=== PATIENT | male | born 1985 | race Caucasian/White ===

== ENCOUNTER 2022-05-04 12:12 | Outpatient (CLI) | payer OTHER, SELFPAY ==
--- NOTE | 2022-05-04 12:00 | USCV_ITS ---
Gabriel Oren Age: 36 Gender: M : 1985 Exam Date: 05/04/2022 12:32 Ordering Phys: Alexandro Guerra M.D ([email or web address]) Technologist: [place] [facility] [place]: chest pain BP: 120 / 70 HR: 57 Rhythm: Sinus Technical Quality: Adequate MEASUREMENTS (Male / Female) Normal Values 2D ECHO LV Diastolic Diameter PLAX 3.9 cm 4.2 - 5.9 / 3.9 - 5.3 cm LV Systolic Diameter PLAX 3.1 cm IVS Diastolic Thickness 1.3 cm 0.6 - 1.0 / 0.6 - 0.9 cm IVS Systolic Thickness 1.5 cm LVPW Diastolic Thickness 1.2 cm 0.6 - 1.0 / 0.6 - 0.9 cm LVPW Systolic Thickness 1.6 cm LVOT Diameter 2.0 cm LV Ejection Fraction 2D Teich 40.8 % LA Diameter 3.2 cm IVC Diameter 1.4 cm M-MODE Aortic Annulus Diameter 3.5 cm LA Ao Ratio MM 0.9 MV E Point Septal Separation 0.9 cm DOPPLER AV Peak Velocity 100.0 cm/s LVOT Peak Velocity 87.0 cm/s AV Area Cont Eq vti 2.3 cm squared AV Area Cont Eq pk 2.7 cm squared MV Area PHT 3.1 cm squared Mitral E to A Ratio 1.7 MV E' Velocity 48.0 cm/s Mitral E to MV E' Ratio 6.6 Mitral E to LV E' Lateral Ratio 6.4 Mitral E to LV E' Septal Ratio 6.8 TR Peak Velocity 165.0 cm/s TR Peak Gradient 10.9 mmHg TV Peak E Velocity 97.0 cm/s Right Atrial Pressure 3.0 mmHg Pulmonary Artery Systolic Pressu 13.9 mmHg FINDINGS Left Ventricle Left ventricle is normal in size. LV systolic function is normal with EF of 55 to 60%. No regional wall motion abnormalities are seen. Right Ventricle Normal in size and function Right Atrium Normal in size Left Atrium Normal in size Mitral Valve Structure normal mitral valve. Aortic Valve Structurally normal aortic valve. No significant stenosis or regurgitation. Tricuspid Valve Trace tricuspid regurgitation. Pulmonary artery systolic pressure is normal. Pulmonic Valve Not well-visualized Pericardium Normal Aorta Normal in size IVC Appears to be normal. CONCLUSIONS LV systolic function is normal with EF of 55 to 60%. Trace tricuspid regurgitation No comparison studies are available Alexandro Guerra MD (Electronically Signed) Final Date: 17 May 2022 15:26 S
== END 2022-05-04 12:13 | disposition home or self-care (01) ==
LOC: RAD 12:12
PROVIDERS: Visit Provider Internal Medicine
DX: R06.02 Shortness of breath (principal); R07.9 Chest pain, unspecified; I07.1 Rheumatic tricuspid insufficiency
CPT/HCPCS: 93306

== ENCOUNTER → 2024-10-13 14:10 | Outpatient (BNVA) | payer OTHER, SELFPAY | PROVIDERS: Visit Provider Podiatrist Foot & Ankle Surgery | DX: Q66.71 Congenital pes cavus, right foot (principal); Q66.72 Congenital pes cavus, left foot | CPT/HCPCS: 73630; 99203 ==